=== PATIENT | female | born 1985 | race Caucasian/White ===

== ENCOUNTER 2017-07-15 05:49 | Emergency (ER) | payer OTHER ==
[~2017-07-15] VITALS: Ht 157.5 cm; Wt 70.3 kg
[2017-07-15 05:50] VITALS: BP_SYST 125
[2017-07-15] MEDS ORDERED: LIDOCAINE 1%, 20 ML MDV 20 ML ONE (06:08)
[2017-07-15] MEDS ORDERED: LIDOCAINE/EPI 1% 1:100000 20 ML VIAL IJ ONE (06:30)
[2017-07-15] MEDS ORDERED: BACITRACIN 1 GM OINT TP ONE (06:30)
[2017-07-15] MEDS ORDERED: DIPH-TET-PERTUS Vaccine 0.5 ML VIAL (ADACEL) IM ONE (06:30)
[2017-07-15 06:40] VITALS: BP_SYST 120
== END 2017-07-15 06:40 | disposition home or self-care (01) ==
LOC: SED 05:49
DX: S61.511A Laceration without foreign body of right wrist, initial encounter (principal); W25.XXXA Contact with sharp glass, initial encounter; Y93.89 Activity, other specified; Y92.89 Other specified places as the place of occurrence of the external cause; Y99.8 Other external cause status
CPT/HCPCS: 12001; 99283; J2001